=== PATIENT | male | born 1970 | race African-American/Black ===

== ENCOUNTER 2023-01-26 08:46 | Emergency (ER) | payer SELFPAY ==
[~2023-01-26] VITALS: Ht 177.8 cm; Wt 82.0 kg
[2023-01-26 08:52] VITALS: BP 136/74
[2023-01-26] MEDS ORDERED: FLUORESCEIN SODIUM 1MG/STRIP BOTHEYE ONE (09:15)
[2023-01-26] MEDS ORDERED: TETRACAINE 0.5% OPHTH DROPS 4ML BOTHEYE ONE (09:15)
[2023-01-26] MEDS ORDERED: POLY10DR EACHEYE (10:18)
== END 2023-01-26 11:05 | disposition home or self-care (01) ==
LOC: ER 09:39
DX: R68.89 Other general symptoms and signs (principal)
CPT/HCPCS: 99283

== ENCOUNTER 2023-01-26 15:35 | Emergency (ER) | payer MEDICAID, OTHER ==
[~2023-01-26] VITALS: Ht 175.3 cm; Wt 80.0 kg
[~2023-01-26 15:35] MED LIST: POLY10DR EACHEYE
[2023-01-26 15:45] VITALS: BP 103/72
== END 2023-01-26 20:29 | disposition left against medical advice (07) ==
LOC: ER 15:35
DX: R53.1 Weakness (principal); Z53.21 Procedure and treatment not carried out due to patient leaving prior to being seen by health care provider
CPT/HCPCS: 99281; Z7610

== ENCOUNTER 2023-03-13 19:34 | Emergency (ER) | payer OTHER ==
[~2023-03-13] VITALS: Ht 177.8 cm; Wt 82.0 kg
[2023-03-13] MEDS ORDERED: HYDROCODONE/ACETAMINOPHEN 5/325MG TABLET PO ONE (20:30)
[2023-03-13 22:33] VITALS: BP 121/79
== END 2023-03-13 22:33 | disposition home or self-care (01) ==
LOC: ER 19:34
DX: S00.03XA Contusion of scalp, initial encounter (principal); F12.90 Cannabis use, unspecified, uncomplicated; Y04.2XXA Assault by strike against or bumped into by another person, initial encounter; Y93.89 Activity, other specified; Y92.89 Other specified places as the place of occurrence of the external cause; Y99.8 Other external cause status
CPT/HCPCS: 99284